=== PATIENT | male | born 1955 | race Caucasian/White ===

== ENCOUNTER → 2021-05-15 | Outpatient (CLI) | payer OTHER | LOC: US 09:00 | DX: Z13.6 Encounter for screening for cardiovascular disorders (principal) | CPT/HCPCS: 76706 ==

== ENCOUNTER → 2021-05-27 | Outpatient (CLI) | payer OTHER | LOC: KOH-I 10:29 | DX: F17.210 Nicotine dependence, cigarettes, uncomplicated (principal); R91.8 Other nonspecific abnormal finding of lung field | CPT/HCPCS: 71271 ==

== ENCOUNTER → 2021-12-11 | Outpatient (CLI) | payer MEDICARE | LOC: HEART 5 08:36 | DX: R06.2 Wheezing (principal) | CPT/HCPCS: 94010 ==

== ENCOUNTER 2022-05-02 10:09 | Emergency (ER) | payer MEDICARE, OTHER ==
[2022-05-02 11:13] LABS: HEMOGLOBIN 16.5 gm/dl (14.0-17.5); RED BLOOD COUNT 5.52 M/UL (4.20-5.50); WHITE BLOOD COUNT 9.8 K/UL (4.5-11.0)
[2022-05-02 12:08] LABS: BUN/CREATININE RATIO 11 (0-10)
[2022-05-02] MEDS ORDERED: ASPIRIN CHEWABL81 MG PO (18:29)
== END 2022-05-02 18:40 | disposition home or self-care (01) ==
LOC: ER1 10:09
PROVIDERS: Emergency Medicine
DX: R20.0 Anesthesia of skin (principal); E78.5 Hyperlipidemia, unspecified; I10 Essential (primary) hypertension; E11.9 Type 2 diabetes mellitus without complications; F17.200 Nicotine dependence, unspecified, uncomplicated
CPT/HCPCS: 70450; 70551; 71045; 80053; 82550; 82553; 84484; 85025; 85652; 93005; 96374; 99284; J2060

== ENCOUNTER → 2022-06-30 | Outpatient (CLI) | payer MEDICARE, OTHER ==
[~2022-06-30] MED LIST: ASPIRIN CHEWABL81 MG PO
== END ==
LOC: KOH-I 13:01 → HEART 5 13:01
DX: R20.2 Paresthesia of skin (principal); I25.10 Atherosclerotic heart disease of native coronary artery without angina pectoris; R91.1 Solitary pulmonary nodule
CPT/HCPCS: 71271; 93880